=== PATIENT | male | born 1995 | race Two or more races ===

== ENCOUNTER 2021-09-24 15:36 | Emergency (ER) | payer BC, OTHER ==
[~2021-09-24] VITALS: Ht 170.2 cm; Wt 76.7 kg
[2021-09-24 17:45] VITALS: BP 136/72
[2021-09-24] MEDS ORDERED: ACETAMINOPHEN 500 MG TAB PO ONE (17:45)
[2021-09-24] MEDS ORDERED: IBUP800T27 PO (17:45)
== END 2021-09-24 18:12 | disposition home or self-care (01) ==
LOC: ER 15:36
DX: B34.9 Viral infection, unspecified (principal); Z20.822 Contact with and (suspected) exposure to COVID-19
CPT/HCPCS: 36415

== ENCOUNTER 2021-10-28 15:00 | Emergency (ER) | payer BC ==
[~2021-10-28] VITALS: Ht 170.2 cm; Wt 77.1 kg
[~2021-10-28 15:00] MED LIST: IBUP800T27 PO
[2021-10-28] MEDS ORDERED: PRED20TA2 PO (19:09)
[2021-10-28 19:31] VITALS: BP 130/76
== END 2021-10-28 19:31 | disposition home or self-care (01) ==
LOC: ER 15:00
DX: B34.9 Viral infection, unspecified (principal); Z20.822 Contact with and (suspected) exposure to COVID-19
CPT/HCPCS: 36415